=== PATIENT | male | born 1975 | race Two or more races ===

== ENCOUNTER 2018-12-06 10:31 | Emergency (ER) | payer OTHER ==
[~2018-12-06] VITALS: Ht 188 cm; Wt 100.0 kg
[2018-12-06] MEDS ORDERED: OMEG-50 PO (10:42)
[2018-12-06] MEDS ORDERED: MULT-1259 PO (10:42)
[2018-12-06] MEDS ORDERED: CHOL50004 PO (10:42)
[2018-12-06] MEDS ORDERED: GINK40CA5 PO (10:42)
[2018-12-06] MEDS: SODIUM CHLORIDE 0.9% 250 ML IRRIG SOLUTION BOTTLE IRRIG ONE (11:38)
[2018-12-06] MEDS: PERTUSS(ACELL),DIPH,TET VAC/PF 0.5 ML VIAL IM ONE (11:38)
[2018-12-06 12:11] VITALS: BP 135/90
== END 2018-12-06 12:13 | disposition home or self-care (01) ==
LOC: EMS 10:35
DX: S01.01XA Laceration without foreign body of scalp, initial encounter (principal); W22.8XXA Striking against or struck by other objects, initial encounter; Y93.89 Activity, other specified; Y92.89 Other specified places as the place of occurrence of the external cause; Y99.8 Other external cause status
CPT/HCPCS: 90471; 90715